=== PATIENT | female | born 1990 | race Caucasian/White ===

== ENCOUNTER → 2020-04-13 | Outpatient (CLI) | payer SELFPAY ==
[2020-04-13 18:30] LABS: BASOPHILS % (AUTO) 0 % (0-10); EOSINOPHILS # (AUTO) 0.2 10^3/uL (0.0-0.3); EOSINOPHILS % (AUTO) 2 % (0-10); HEMATOCRIT 39 % (35-52); HEMOGLOBIN 12.6 g/dL (11.5-16.0); LYMPHOCYTES # (AUTO) 3.7 10^3/uL (1.0-4.0); LYMPHOCYTES % (AUTO) 34 % (12-44); MEAN CORPUSCULAR HEMOGLOBIN 29 pg (25-34); MEAN CORPUSCULAR HGB CONC 32 g/dL (32-36); MEAN CORPUSCULAR VOLUME 91 fL (80-99); MEAN PLATELET VOLUME 9.6 fL (9.0-12.2); MONOCYTES % (AUTO) 10 % (0-12); NEUTROPHILS # (AUTO) 5.8 10^3/uL (1.8-7.8); NEUTROPHILS % (AUTO) 54 % (42-75); PLATELET COUNT 246 10^3/uL (130-400); WHITE BLOOD COUNT 10.7 10^3/uL (4.3-11.0)
[2020-04-13 18:47] LABS: ALBUMIN 4.1 GM/DL (3.2-4.5); CHLORIDE 105 MMOL/L (98-107); SODIUM 136 MMOL/L (135-145)
[2020-04-13 18:48] LABS: CALCIUM 9.1 MG/DL (8.5-10.1)
[2020-04-13 18:49] LABS: GLUCOSE 87 MG/DL (70-105); TOTAL PROTEIN 7.9 GM/DL (6.4-8.2)
[2020-04-13 18:50] LABS: CARBON DIOXIDE 23 MMOL/L (21-32)
[2020-04-13 18:51] LABS: BILIRUBIN,TOTAL 0.2 MG/DL (0.1-1.0)
[2020-04-13 18:53] LABS: ALKALINE PHOSPHATASE 75 U/L (40-136); CREATININE SERUM 0.82 MG/DL (0.60-1.30); GFR ESTIMATED > 60
[2020-04-13 18:54] LABS: BUN/CREATININE RATIO 13
[2020-04-13 18:56] LABS: ALANINE AMINOTRANSFERASE 19 U/L (0-55)
[2020-04-13 19:16] LABS: FREE T4 (FREE THYROXINE) 0.95 NG/DL (0.70-1.48)
== END ==
LOC: LAB 18:07
PROVIDERS: ATTEND Nurse Practitioner
DX: R43.2 Parageusia (principal)
CPT/HCPCS: 36415; 80053; 84439; 84443; 84630; 85025